=== PATIENT | male | born 2005 | race Caucasian/White ===

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

== ENCOUNTER 2023-10-18 10:10 | Outpatient (CLI) | payer OTHER, SELFPAY ==
--- NOTE | ~2023-10-18 | US_ITS ---
EXAMINATION: US soft tissue upper back INDICATION: Mass of the right upper back TECHNIQUE: Targeted ultrasound is performed in the area of clinical concern. COMPARISON: None available FINDINGS: There is a 2.0 x 0.6 cm oval, circumscribed, hypoechoic mass with posterior acoustic enhanc ement in the right upper back in the area of the palpable abnormality. There is a thin tract to the s kin surface. No additional cystic or solid mass is identified. IMPRESSION: 1. Findings consistent with sebaceous cyst corresponding to the area of palpable concern. Reviewed, dictated and finalized at location B. TS PHYSICAL THERAPIST IMPRESSION: 1. Findings consistent with sebaceous cyst corresponding to the area of palpabl e concern.
== END 2023-10-18 10:11 ==
PROVIDERS: PCP Nurse Practitioner Family; Visit Provider Nurse Practitioner Family
DX: R22.2 Localized swelling, mass and lump, trunk (principal)
CPT/HCPCS: 76604

== ENCOUNTER 2024-05-08 17:25 | Emergency (ER) | payer OTHER, SELFPAY ==
--- NOTE | ~2024-05-08 | XR_ITS ---
EXAMINATION: XR abdomen/kub 1V DATE: 05/08/2024 19:11 INDICATION: Vomiting. TECHNIQUE: A supine view of the abdomen on 2 radiographs was obtained. COMPARISON: None. FINDINGS: There are no dilated loops of bowel. There is a small volume of stool in the colon. A 2 mm calcification in right pelvis is likely a phlebolith. IMPRESSION: 1. Normal bowel gas pattern. Reviewed, dictated and finalized at location E.
[2024-05-08 17:29] VITALS: BP 148/88; PULSE 85; RESP 16; TEMP 36.6; O2SAT 100
--- NOTE | 2024-05-08 18:41 | ED.GENADULT ---
HPI - General Adult General Chief complaint: Nausea/Vomiting/Diarrhea <Lety Wilde February, MANAGER [employer]ILLING - Last Filed: 05/08/24 18:44> Stated complaint: n/v x3 weeks <Lety Wilde February, MANAGER [employer]ILLING - Last Filed: 05/08/24 18:44> Time Seen by Provider: 05/08/24 18:41 <Lety Wilde February, MANAGER BILLING - Last Filed: 05/08/24 18:44> Focused HPI: Nito Leyva is a 18 y/o male who presents with reports that the past couple weeks that every time he tries to eat anything he vomits it back up. He states he eats and it stays down for a little bit and then when he stands up he then has to throw up. Denies any abdominal pain. He states that he has been able to keep some liquids down but no food. Last BM was last night. GENERAL: Well-appearing, well-nourished, and in no acute distress. HEAD: Normocephalic, atraumatic. CHEST: Clear to auscultation. ?No respiratory distress. HEART: Regular rate and rhythm.? NEURO: ?Alert and oriented x3. Patient screened in triage and initial orders placed.? ?Additional care and disposition to be based upon?diagnostic testing and treatment. <Lety Wilde February, MANAGER BILLING - Last Filed: 05/08/24 18:44> Related Data Allergies/adverse reactions: Allergies Allergy/AdvReac Type Severity Reaction Status Date / Time No Known Drug Allergies Allergy Unknown none Verified 04/27/24 10:35 <Lety Wilde February,N - Last Filed: 05/08/24 18:44> Review of Systems Review of Systems: All systems reviewed & are unremarkable except as noted in HPI and below <Julius Villarreal MD - Last Filed: 05/09/24 04:48> PMFSH Past Medical History Medical History: Medical History (Updated 05/09/24 @ 00:00 by Felice Peace) No significant past medical history <Lety Wilde February, MANAGER [employer]ILLING - Last Filed: 05/08/24 18:44> Surgical History Surgical History: Surgical History (System 04/27/24 @ 10:35 by Syd Wahl) H/O excision of dermoid cyst Dr. Oleksandr Voss 03/2024 No pertinent past surgical history <Lety Wilde February, MANAGER BILLING - Last Filed: 05/08/24 18:44> Family History Family History: Family History Mother Graves disease <Lety Wilde February, MANAGER BILLING - Last Filed: 05/08/24 18:44> Social History Social History: Social History (System 04/27/24 @ 10:35 by Syd Wahl) Smoking status: Never smoker Second hand tobacco smoke exposure: No Alcohol intake: never Substance use: never Living arrangements: with family Occupation/Education: student Gender identity (if verbalized by the patient): Male <Lety Wilde February, - Last Filed: 05/08/24 18:44> Exam Narrative: APPEARANCE: Well appearing, no pain, no distress, well-nourished. HEAD: normocephalic, atraumatic. EYES: PERRLA/EOMI, conjunctivae clear. NOSE: Normal no drainage EARS:TMS clear with good light reflex. THROAT: Pharynx clear, no exudate. NECK: Supple. No adenopathy, no masses. RESPIRATORY: Airway patent, respirations nonlabored. Clear to auscultation bilaterally, no rales, rhonchi, wheezing. CARDIOVASCULAR: Regular rate and rhythm without murmurs rubs or gallops. ABDOMINAL: Soft, nontender, nondistended, normal bowel sounds MUSCULOSKELETAL: Moves all extremities. Strength/ROM intact, No edema, No calf tenderness. NEURO: Alert. Cranial nerves II through XII intact. Grossly intact SKIN: Warm, dry. Normal Color <Julius Villarreal MD - Last Filed: 05/09/24 04:48> Course Course Emergency Course: Patient had a negative workup was discharged home with [facility] for symptom control. <Julius Villarreal MD - Last Filed: 05/09/24 04:48> Vital Signs Vital signs: Vital Signs Temperature 97.9 F 05/08/24 17:29 Pulse Rate 85 05/08/24 17:29 Respiratory Rate 16 05/08/24 17:29 Blood Pressure 148/88 H 05/08/24 17:29 Pulse Oximetry 100 05/08/24 17:29 Temperature 97.9 F 05/08/24 17:29 Pulse Rate 58 L 05/08/24 22:19 Respiratory Rate 18 05/08/24 22:19 Blood Pressure 128/74
[2024-05-08 19:39] VITALS: BP 110/75; PULSE 63; RESP 15; O2SAT 99
[2024-05-08] MEDS: SODIUM CHLORIDE 0.9% IV 1,000 ML 999 ML IV CONT (21:46)
[2024-05-08] MEDS: ONDANSETRON INJ 4 MG/2 ML VIAL IV PUSH (21:46)
[2024-05-08 21:49] LABS: Basophils Percent Auto 0.4 % (0.2-1.2); Eosinophils Absolute Auto 0.1 K/mm3 (0-0.3); Hematocrit 45.7 % (42.0-52.0); Hemoglobin 15.6 g/dL (14.0-18.0); Immature Granulocyte Absolute 0.01 K/mm3 (0.00-0.031); Immature Granulocyte Percent A 0.1 % (0-0.5); Lymphocytes Absolute Auto 1.96 K/mm3 (0.9-3.2); Mean Corpuscular HGB Conc 34.1 g/dl (32-36); Mean Corpuscular Hemoglobin 29.4 pg (26-34); Mean Corpuscular Volume 86.2 fl (80-100); Mean Platelet Volume 10.8 fl (7.4-10.4); Monocytes Absolute Auto 0.5 K/mm3 (0.1-0.6); Monocytes Percent Auto 6.8 % (2.6-8.5); Neutrophils Absolute Auto 4.2 K/mm3 (1.3-6.7); Neutrophils Percent Auto 62.7 % (45.5-73.1); Platelet Count Result 188 k/mm3 (150-375); Red Cell Distribution Width 12.1 % (11.5-14.5); White Blood Count 6.8 K/mm3 (4.5-10.0)
[2024-05-08 22:04] LABS: Alanine Aminotransferase 19 U/L (6-50); Albumin Level 5.1 g/dL (3.5-5.1); Alkaline Phosphatase 59 U/L (38-126); Anion Gap 13 mmol/L (4-12); Aspartate Amino Transferase 23 U/L (17-59); Bilirubin,Total 1.2 mg/dL (0.2-1.3); Blood Urea Nitrogen 9 mg/dL (9-20); Calcium 9.5 mg/dL (8.4-10.2); Carbon Dioxide 27 mmol/L (22-30); Chloride 100 mmol/L (98-107); Estimated CRCL calculation 99 ml/min; Estimated Glomerular Filt Rate > 60; Glucose 86 mg/dL (65-110); Lipase 34 U/L (23-300); Potassium 3.6 mmol/L (3.4-5.0); Sodium 140 mmol/L (137-145)
[2024-05-08 22:19] VITALS: BP 128/74; PULSE 58; RESP 18; O2SAT 100
--- NOTE | 2024-05-14 14:26 | PC.NURSE ---
LATE ENTRY This note is being entered to document information to the patient's record. The following information was omitted on [05/08/24], by [Daisy Elias RN]. NS stop time [id number].
== END 2024-05-08 22:30 | disposition home or self-care (01) ==
PROVIDERS: Nurse Practitioner Family; Emergency Provider Emergency Medicine; PCP Nurse Practitioner Family
DX: R11.2 Nausea with vomiting, unspecified (principal)
CPT/HCPCS: 36415; 74018; 80053; 83690; 85025; 96361; 96374; 99284; J2405; J7030

== ENCOUNTER 2024-05-13 16:43 | Outpatient (CLI) | payer OTHER, SELFPAY ==
[2024-05-13 17:29] LABS: Hematocrit 48.2 % (42.0-52.0); Hemoglobin 16.2 g/dL (14.0-18.0); Mean Corpuscular HGB Conc 33.6 g/dl (32-36); Mean Corpuscular Hemoglobin 29.3 pg (26-34); Mean Corpuscular Volume 87.3 fl (80-100); Mean Platelet Volume 11.5 fl (7.4-10.4); Platelet Count Result 209 k/mm3 (150-375); Red Blood Count 5.52 M/mm3 (4.6-6.20); Red Cell Distribution Width 12.3 % (11.5-14.5); White Blood Count 7.3 K/mm3 (4.5-10.0)
[2024-05-13 17:55] LABS: Alanine Aminotransferase 20 U/L (6-50); Albumin Level 5.4 g/dL (3.5-5.1); Alkaline Phosphatase 56 U/L (38-126); Anion Gap 14 mmol/L (4-12); Aspartate Amino Transferase 25 U/L (17-59); Bilirubin,Total 1.3 mg/dL (0.2-1.3); Blood Urea Nitrogen 9 mg/dL (9-20); CRP < 0.5 mg/dL (<1.0); Calcium 9.9 mg/dL (8.4-10.2); Carbon Dioxide 29 mmol/L (22-30); Chloride 98 mmol/L (98-107); Estimated Glomerular Filt Rate > 60; Glucose 108 mg/dL (65-110); Potassium 4.1 mmol/L (3.4-5.0); Sodium 141 mmol/L (137-145)
[2024-05-13 17:58] LABS: Erythrocyte Sedimentation Rate 2 mm/hr (0-20)
[2024-05-13 18:23] LABS: Thyroid Stimulating Hormone Reflex 0.915 uIU/mL (0.465-4.68)
[2024-05-14 11:44] LABS: EBV Nuclear Ab Antibody <18.00 U/mL; EBV Virus Capsid Ag IgG Ab <18.00 U/mL; EBV Virus Capsid Ag IgM Ab <36.00 U/mL
[2024-05-18 13:28] LABS: Immunoglobulin A 127 mg/dL (47-310); TTG IGA AB <1.0 U/mL
== END 2024-05-13 16:44 | disposition home or self-care (01) ==
LOC: ANHLAB 16:45
PROVIDERS: PCP Nurse Practitioner Family; Visit Provider Nurse Practitioner
DX: R11.2 Nausea with vomiting, unspecified (principal)
CPT/HCPCS: 36415; 80053; 82784; 84443; 85027; 85652; 86140; 86364; 86664; 86665

== ENCOUNTER 2024-05-14 11:42 | Outpatient (NON) | payer OTHER, SELFPAY ==
[2024-05-14 12:44] LABS: Bacteria Urine None Seen /hpf; Bilirubin Urine Negative (Negative); Blood Urine Negative (Negative); Color Urine Dark Yellow (Yellow); Glucose Urine UA Negative (Negative); Ketones Urine 2+ mg/dL (Negative); Leukocyte Esterase Ur Negative LEU/UL (Negative); Nitrate Urine Negative (Negative); Non Pathogenic Casts 0-2; Protein Urine 1+ mg/dL (Negative); RBC Urine 0-2 /hpf (0-2); Specific Grav Ur 1.029 (1.001-1.035); Squamous Epithelial Cell Urine None Seen /hpf (Few); WBC Urine 0-5 /hpf (0-3)
[2024-05-14 12:46] LABS: Appearance Urine Cloudy (Clear)
[2024-05-14 12:47] LABS: Add Urine Microscopic? YES
== END 2024-05-14 11:43 | disposition home or self-care (01) ==
PROVIDERS: PCP Nurse Practitioner Family; Visit Provider Nurse Practitioner
DX: R11.2 Nausea with vomiting, unspecified (principal)
CPT/HCPCS: 81001

== ENCOUNTER 2024-05-21 12:27 | Outpatient (CLI) | payer OTHER, SELFPAY ==
--- NOTE | ~2024-05-21 | CT_ITS ---
EXAMINATION: CT abdomen pelvis w con DATE: 05/21/2024 12:55 INDICATION: Nausea and vomiting. Left upper quadrant pain. TECHNIQUE: Computed tomography (CT) of the abdomen and pelvis was performed with 100 cc Omnipaque 350 intravenous contrast. The dose-length product was 257.85 mGy-cm. Automated exposure control and iter ative reconstruction technique were employed. COMPARISON: None. FINDINGS: Lung bases are unremarkable. No significant pleural or pericardial effusion. The liver, victor creas, adrenal glands and kidneys are unremarkable. There is a small subcentimeter hypodensity of the left kidney, too small to characterize. Gallbladder is present. Nonobstructive bowel gas pattern. No rmal appendix. No free air or free fluid. No acute osseous abnormality. IMPRESSION: 1. No acute abdominal abnormality. Reviewed, dictated and finalized at location B.
== END 2024-05-21 12:28 | disposition home or self-care (01) ==
PROVIDERS: PCP Pediatrics; Visit Provider Nurse Practitioner
DX: R10.812 Left upper quadrant abdominal tenderness (principal); R11.2 Nausea with vomiting, unspecified; R63.4 Abnormal weight loss
CPT/HCPCS: 74177; Q9967